=== PATIENT | female | born 1945 | race Caucasian/White ===

== ENCOUNTER → 2017-04-30 | Outpatient (CLI) | payer MEDICARE ==
[2017-04-30 15:49] LABS: Blood Urea Nitrogen 21 mg/dL (7-17); Non-African American GFR(MDRD) >60 (>60 ml/min/1.73 sqM)
== END | disposition home or self-care (01) ==
LOC: LABWHC1 15:08
PROVIDERS: ATTEND Ophthalmology
DX: H47.20 Unspecified optic atrophy (principal)
CPT/HCPCS: 36415; 82565; 84520

== ENCOUNTER → 2017-04-30 | Outpatient (CLI) | payer MEDICARE ==
--- NOTE | 2017-05-01 07:25 | BD ---
EXAMINATION TYPE: MG DEXA axial skeleton. DATE OF EXAM: 04/30/2017 COMPARISON: Osteopenia. CLINICAL HISTORY: 10/21/2011 Height: 65 Weight: 182.8 FRAX RISK QUESTIONS: Alcohol (3 or more units per day): no Family History (Parent hip fracture): no Glucocorticoids (More than 3mos): no (Ex: prednisone, prednisolone, methylprednisolone, dexamethasone, and hydrocortisone). History of Fracture in Adulthood: yes Secondary Osteoporosis: 1. Type 1 Diabetes: no 2. Hyperthyroidism: no follow up exam. 3. Menopause before 45: no 4. Malnutrition: no 5. Chronic liver disease: no Rheumatoid Arthritis: no Current Tobacco Use: no RISK FACTORS HISTORY OF: Hip Fracture (Right/Left): no Spine Fracture: no History of Wrist Fracture: no Surgery to Spine/Hip(right/left)/Wrist (right/left): no Family History of Osteoporosis: no Active: yes Diet low in dairy products/other sources of calcium: no Postmenopausal woman: age 50 Iosat more than 2 inches in height since high school: yes Frequent falls: no Poor Health: no Hyperparathyroidism: no Adrenal Insufficiency: no MEDICATIONS: prilosec, zocor, vasotec, ecotrin, calcium, vit d3, multi vit, xalantran, combigan, ref resh pm Additional History: EXAM MEASUREMENTS: Bone mineral densitometry was performed using the [employer] System. Bone mineral density as measured about the Lumbar spine is: ----- L1-L4(G/cm2): 1.054 T Score Values are as follows: ----- L2: -1.4 ----- L3: -0.7 ----- L4: -0.7 ----- L1-L4: -1.0 Bone mineral density has: increased 7.6 % since study of: 10.21.2011 Bone mineral density about the R hip (g/cm2): 0.771 Bone mineral density about the L hip (g/cm2): 0.841 T Score values are as follows: -----R Neck: -1.9 -----L Neck: -1.4 -----R Total: -1.0 -----L Total: -0.7 Bone mineral density has: decreased -3.7 % since study of: 10.21.2011 IMPRESSION: Osteopenia (T Score between -2.5 and -1 as noted by T score values). Both hips. There is slightly increased risk of fracture and the patient may be considered for treatment. Re-Screen 2-5 years. NOTE: T-SCORE=SD OF THE YOUNG ADULT MEAN.
--- NOTE | 2017-05-05 10:54 | MM ---
Reason for exam: screening (asymptomatic). Last mammogram was performed 2 years and 2 months ago. History: Patient is postmenopausal and had first child at age 30. Physical Findings: A clinical breast exam by your physician is recommended on an annual basis and results should be correlated with mammographic findings. MG 3D Screening Mammo W/Cad Bilateral CC and MLO view(s) were taken. Prior study comparison: March 06, 2015, bilateral MG screening mammo w CAD. April 05, 2013, bilateral digital screening mammo w/CAD. The breast tissue is heterogeneously dense. This may lower the sensitivity of mammography. Architectural distortion in seen within the lateral right breast at middle depth for which additional views will be performed. ASSESSMENT: Incomplete: need additional imaging evaluation, BI-RAD 0 RECOMMENDATION: Special view mammogram of the right breast. If lesion persists on supplemental views, image directed ultrasound is recommended. [facility] will attempt to contact patient to return for supplemental views and ultrasound if indicated. FRIEDA
== END | disposition home or self-care (01) ==
LOC: RADMAMWWP 13:56
PROVIDERS: ATTEND Family Medicine
DX: Z12.31 Encounter for screening mammogram for malignant neoplasm of breast (principal); M85.88 Other specified disorders of bone density and structure, other site
CPT/HCPCS: 77080; 77063; G0202

== ENCOUNTER → 2017-05-13 | Outpatient (CLI) | payer MEDICARE ==
--- NOTE | 2017-05-13 14:30 | MM ---
Reason for exam: additional evaluation requested from abnormal screening. Last mammogram was performed less than 1 month ago. History: Patient is postmenopausal and had first child at age 30. Physical Findings: Nurse did not find any significant physical abnormalities on exam. MG 3D Work Up W/Cad RT CC, MLO, ML, spot compression MLO, and spot compression CC view(s) were taken of the right breast. Prior study comparison: April 30, 2017, bilateral MG 3d screening mammo w/cad. March 06, 2015, bilateral MG screening mammo w CAD. The breast tissue is heterogeneously dense. This may lower the sensitivity of mammography. Probable summation density inner outer right breast. A 6 month follow up recommended. These results were verbally communicated with the patient and result sheet given to the patient on 05/13/17. ASSESSMENT: Probably benign, BI-RAD 3 RECOMMENDATION: Follow-up diagnostic mammogram of the right breast in 6 months.
== END ==
LOC: RADMAMWWP 13:33
PROVIDERS: ATTEND Family Medicine
DX: R92.8 Other abnormal and inconclusive findings on diagnostic imaging of breast (principal)
CPT/HCPCS: G0206; G0279

== ENCOUNTER → 2017-05-20 | Outpatient (CLI) | payer MEDICARE ==
--- NOTE | 2017-05-22 07:48 | MR ---
EXAMINATION TYPE: MR brain/orbits wo/w con DATE OF EXAM: 05/20/2017 COMPARISON: NONE HISTORY: optic atrophy CONTRAST: Performed utilizing 20 mL intravenous MultiHance gadolinium contrast. TECHNIQUE: Multiplanar, multiecho imaging on a 3.0 Carito magnet is performed through the brain. Stud y is performed within 24 hours of arrival to the hospital. The craniovertebral junction is normal. There is a large mass expanding the sella extending into the suprasellar region. The internal carotid artery on the right has contact but no encasement. There may be approximately 50% encasement of the left internal carotid artery at the carotid siphon on the left. Upward expansion has compression on t he optic chiasm which is slightly elevated and flattened. This mass structure has enhancement and is slightly heterogenous. This measures 2.5 AP by 2.5 transverse by 2.9 cm in craniocaudal dimension. 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 Diffusion-weighted imaging is performed. No abnormal hyperintensity is present to suggest an acute i ntracranial infarct or acute ischemic change. The suprasellar mass has diffusion weighted signal tamara lar to that of the brain. There are scattered periventricular white matter changes which are nonspecific. Findings could be rel ated to microvascular ischemic change. Ventricles and sulci are appropriate for the patient age. Dedicated imaging is performed through the orbits. The globes are symmetrical. Optic nerves appear no rmal to the posterior orbital foramen. Optic chiasm is displaced by the suprasellar mass. Optic radia tions appear unremarkable. Intraconal and extraconal fat is normal. Extraocular muscles are normal. L acrimal gland regions are normal. No additional areas of abnormal enhancement. There is enhancement of the suprasellar mass. Vascular f low voids enhancement appear normal. IMPRESSIONS: 1. 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
== END | disposition home or self-care (01) ==
LOC: RADMRIMAIN 13:10
PROVIDERS: ATTEND Ophthalmology
DX: E23.6 Other disorders of pituitary gland (principal); H47.20 Unspecified optic atrophy
CPT/HCPCS: 70543; 70553; A9577

== ENCOUNTER → 2017-11-14 | Outpatient (CLI) | payer MEDICARE ==
--- NOTE | 2017-11-14 11:49 | MM ---
Reason for exam: follow-up at short interval from prior study. Last mammogram was performed 6 months ago. History: Patient is postmenopausal and had first child at age 30. Physical Findings: Nurse did not find any significant physical abnormalities on exam. MG 3D Diag Mammo W/Cad RT CC and MLO view(s) were taken of the right breast. Prior study comparison: May 13, 2017, right breast MG 3d work up w/cad RT. April 30, 2017, bilateral MG 3d screening mammo w/cad. The breast tissue is heterogeneously dense. This may lower the sensitivity of mammography. The lower outer focal asymmetry does not persist. A central density posteriorly on the MLO view also does not persist on lateral 3D images. These results were verbally communicated with the patient and result sheet given to the patient on 11/14/17. ASSESSMENT: Negative, BI-RAD 1 RECOMMENDATION: Return to routine screening mammogram schedule for both breasts. Back on schedule.
== END | disposition home or self-care (01) ==
LOC: RADMAMWWP 10:57
PROVIDERS: ATTEND Family Medicine
DX: R92.8 Other abnormal and inconclusive findings on diagnostic imaging of breast (principal)
CPT/HCPCS: 77065; G0279

== ENCOUNTER 2017-12-10 11:49 | Emergency (ER) | payer MEDICARE ==
[2017-12-10] MEDS ORDERED: SODIUM CHLORIDE 0.9% 1,000 ML IV STA (12:05)
--- NOTE | 2017-12-10 12:42 | ED ---
General Adult HPI - General Chief complaint: Dizziness Stated complaint: Dizziness Time Seen by Provider: 12/10/17 12:05 Source: patient, RN notes reviewed, old records reviewed Mode of arrival: EMS Limitations: no limitations - History of Present Illness Initial comments: This is a 72-year-old female to the ER for evaluation regards to syncopal event. Patient has no prior history of syncope. Patient states he felt a little dizzy earlier today wanted to her kitchen trying to brace herself neck seen AT the ground. Patient denied any prior chest pain or shortness of breath , no current chest pain or shortness of breath no injury from fall no headache no abdominal pain. No recent nausea vomiting or diarrhea, no change in medications. Patient feels much better currently - Related Data Home Medications Medication Instructions Recorded Confirmed Acetaminophen Tab [Tylenol Tab] 500 - 1,000 mg PO Q6H PRN 12/10/17 12/10/17 Aspirin EC [Ecotrin] 325 mg PO HS 12/10/17 12/10/17 Brimonidine Tartrate/Timolol 1 drop BOTH EYES BID 12/10/17 12/10/17 [Combigan 0.2%-0.5% Eye Drops] Calcium 600-Vit D3 800 1 tab PO DAILY 12/10/17 12/10/17 Carboxymethylcellulose Sodium 1 drop BOTH EYES HS 12/10/17 12/10/17 [Refresh Tears] Cholecalciferol [Vitamin D3] 5,000 unit PO HS 12/10/17 12/10/17 Enalapril [Vasotec] 20 mg PO DAILY 12/10/17 12/10/17 Ibuprofen [Advil] 200 - 400 mg PO Q8HR PRN 12/10/17 12/10/17 Latanoprost Ophth [Xalatan 0.005%] 1 drops BOTH EYES HS 12/10/17 12/10/17 Multivitamins, Thera [Multivitamin 1 tab PO DAILY 12/10/17 12/10/17 (formulary)] Ocusoft Eye Lid Scrub 1 applic BOTH EYES DAILY 12/10/17 12/10/17 Omeprazole [PriLOSEC] 20 mg PO DAILY PRN 12/10/17 12/10/17 Simvastatin [Zocor] 10 mg PO HS 12/10/17 12/10/17 Allergies Allergy/AdvReac Type Severity Reaction Status Date / Time propoxyphene [From Darvon] AdvReac Rapid Verified 12/10/17 12:44 Heart Rate Review of Systems ROS Statement: Those systems with pertinent positive or pertinent negative responses have been documented in the HPI. ROS Other: All systems not noted in ROS Statement are negative. 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 Absent: scleral icterus, conjunctival injection, periorbital swelling ENT exam: Present: normal exam, mucous membranes moist Neck exam: Present: normal inspection. Absent: tenderness, meningismus, lymphadenopathy Respiratory exam: Present: normal lung sounds bilaterally. Absent: respiratory distress, wheezes, rales, rhonchi, stridor Cardiovascular Exam: Present: regular rate, normal rhythm, normal heart sounds. Absent: systolic murmur, diastolic murmur, rubs, gallop, clicks GI/Abdominal exam: Present: soft, normal bowel sounds. Absent: distended, tenderness, guarding, rebound, rigid Extremities exam: Present: normal inspection, full ROM, normal capillary refill. Absent: tenderness, pedal edema, joint swelling, calf tenderness Back exam: Present: normal inspection Neurological exam: Present: alert, oriented X3, CN II-XII intact Psychiatric exam: Present: normal affect, normal mood Skin exam: Present: warm, dry, intact, normal color. Absent: rash Course Vital Signs 12/10/17 12/10/17 12/10/17 12:03 13:08 14:12 Temperature 97.4 F L Pulse Rate 62 55 L 57 L Respiratory 18 18 16 Rate Blood Pressure 148/72 150/72 172/77 O2 Sat by Pulse 99 100 100 Oximetry - Reevaluation(s) Reevaluation #1: 12/10/17 14:49 Patient is without syncopal episode here in the ER no headache chest pain shortness of breath or abdominal pain. Patient able to cannulate the bathroom without difficulty 12/10/17 14:50 Patient has no complaints EKG Findings - EKG Comments: EKG Findings:: EKG shows sinus bradycardia rate of 59, DC 178, QRS 90, QTc 4 level Medical Decision Making - Medical Decision Making 72 female the ER for evaluation regarding syncopal event. Lightheadedness prior syncope. At this time no complaints no complaints to ER stay no recurrent syncope. Patient's labwork is normal patient can be discharged home - Lab Data Result diagrams: 12/10/17 13:10 12/10/17 13:10 Lab Results 12/10/17 12/10/17 12/10/17 Range/Units 12:20 13:10 13:10 WBC 10.4 (3.8-10.6) k/uL RBC 3.93 (3.80-5.40) m/uL Hgb 11.2 L (11.4-16.0) gm/dL Hct 33.4 L (34.0-46.0) % MCV 85.0 (80.0-100.0) fL MCH 28.4 (25.0-35.0) pg MCHC 33.4 (31.0-37.0) g/dL RDW 13.4 (11.5-15.5) % Plt Count 349 (150-450) k/uL Neutrophils % 76 % Lymphocytes % 13 % Monocytes % 6 % Eosinophils % 2 % Basophils % 1 % Neutrophils # 7.9 H (1.3-7.7) k/uL Lymphocytes # 1.3 (1.0-4.8) k/uL Monocytes # 0.7 (0-1.0) k/uL Eosinophils # 0.3 (0-0.7) k/uL Basophils # 0.1 (0-0.2) k/uL PT (9.0-12.0) sec INR (<1.2) APTT (22.0-30.0) sec Sodium (137-145) mmol/L Potassium (3.5-5.1) mmol/L Chloride (98-107) mmol/L Carbon Dioxide (22-30) mmol/L Anion Gap mmol/L BUN (7-17) mg/dL Creatinine (0.52-1.04) mg/dL Est GFR (CKD-EPI)AfAm (>60 ml/min/1.73 sqM) Est GFR (CKD-EPI)NonAf (>60 ml/min/1.73 sqM) Glucose (74-99) mg/dL Calcium (8.4-10.2) mg/dL Phosphorus (2.5-4.5) mg/dL Magnesium (1.6-2.3) mg/dL Total Bilirubin (0.2-1.3) mg/dL AST (14-36) U/L ALT (9-52) U/L Alkaline Phosphatase (38-126) U/L Total Creatine Kinase 36 (30-135) U/L CK-MB (CK-2) 0.7 (0.0-2.4) ng/mL CK-MB (CK-2) Rel Index 1.9 Troponin I <0.012 (0.000-0.034) ng/mL Total Protein (6.3-8.2) g/dL Albumin (3.5-5.0) g/dL Urine Color Yellow Urine Appearance Cloudy H (Clear) Urine pH 5.5 (5.0-8.0) Ur Specific [place] 1.017 (1.001-1.035) Urine Protein 1+ H (Negative) Urine Glucose (UA) Negative (Negative) Urine Ketones Negative (Negative) Urine Blood Negative (Negative) Urine Nitrite Negative (Negative) Urine Bilirubin Negative (Negative) Urine Urobilinogen <2.0 (<2.0) mg/dL Ur Leukocyte Esterase Large H (Negative) Urine RBC 4 (0-5) /hpf Urine WBC 25 H (0-5) /hpf Ur Squamous Epith Cells 8 H (0-4) /hpf Urine Bacteria Rare H (None) /hpf Hyaline Casts 12 H (0-2) /lpf Urine Mucus Occasional H (None) /hpf 12/10/17 12/10/17 Range/Units 13:10 13:10 WBC (3.8-10.6) k/uL RBC (3.80-5.40) m/uL Hgb (11.4-16.0) gm/dL Hct (34.0-46.0) % MCV (80.0-100.0) fL MCH (25.0-35.0) pg MCHC (31.0-37.0) g/dL RDW (11.5-15.5) % Plt Count (150-450) k/uL Neutrophils % % Lymphocytes % % Monocytes % % Eosinophils % % Basophils % % Neutrophils # (1.3-7.7) k/uL Lymphocytes # (1.0-4.8) k/uL Monocytes # (0-1.0) k/uL Eosinophils # (0-0.7) k/uL Basophils # (0-0.2) k/uL PT 10.5 (9.0-12.0) sec INR 1.1 (<1.2) APTT 21.5 L (22.0-30.0) sec Sodium 143 (137-145) mmol/L Potassium 4.3 (3.5-5.1) mmol/L Chloride 106 (98-107) mmol/L Carbon Dioxide 26 (22-30) mmol/L Anion Gap 11 mmol/L BUN 27 H (7-17) mg/dL Creatinine 0.82 (0.52-1.04) mg/dL Est GFR (CKD-EPI)AfAm 82 (>60 ml/min/1.73 sqM) Est GFR (CKD-EPI)NonAf 71 (>60 ml/min/1.73 sqM) Glucose 106 H (74-99) mg/dL Calcium 10.0 (8.4-10.2) mg/dL Phosphorus 3.0 (2.5-4.5) mg/dL Magnesium 1.5 L (1.6-2.3) mg/dL Total Bilirubin 0.2 (0.2-1.3) mg/dL AST 19 (14-36) U/L ALT 24 (9-52) U/L Alkaline Phosphatase 80 (38-126) U/L Total Creatine Kinase (30-135) U/L CK-MB (CK-2) (0.0-2.4) ng/mL CK-MB (CK-2) Rel Index Troponin I (0.000-0.034) ng/mL Total Protein 6.5 (6.3-8.2) g/dL Albumin 3.5 (3.5-5.0) g/dL Urine Color Urine Appearance (Clear) Urine pH (5.0-8.0) Ur Specific [place] (1.001-1.035) Urine Protein (Negative) Urine Glucose (UA) (Negative) Urine Ketones (Negative) Urine Blood (Negative) Urine Nitrite (Negative) Urine Bilirubin (Negative) Urine Urobilinogen (<2.0) mg/dL Ur Leukocyte Esterase (Negative) Urine RBC (0-5) /hpf Urine WBC (0-5) /hpf Ur Squamous Epith Cells (0-4) /hpf Urine Bacteria (None) /hpf Hyaline Casts (0-2) /lpf Urine Mucus (None) /hpf Disposition Clinical Impression: Syncope Disposition: HOME SELF-CARE Condition: Good Instructions: Syncope (ED) Referrals: Rose Mary Moon MD [Primary Care Provider] - 1-2 days
[2017-12-10 12:52] LABS: Appearance,Urine Cloudy (Clear); Bacteria,Urine Rare /hpf; Bilirubin,Urine Negative (Negative); Blood,Urine Negative (Negative); Color,Urine Yellow; Glucose,Urine (UA) Negative (Negative); Hyaline Casts,Urine 12 /lpf (0-2); Ketones,Urine Negative (Negative); Leukocyte Esterase,Urine Large (Negative); Mucus,Urine Occasional /hpf; Nitrite,Urine Negative (Negative); PH, Urine 5.5 (5.0-8.0); Protein,Urine 1+ (Negative); RBC,Urine 4 /hpf (0-5); Specific Gravity,Urine 1.017 (1.001-1.035); Squamous Epithelial Cell,Urine 8 /hpf (0-4); Urobilinogen,Urine <2.0 mg/dL (<2.0); WBC,Urine 25 /hpf (0-5)
[2017-12-10 13:24] LABS: Basophils # (A) 0.1 k/uL (0-0.2); Basophils % (A) 1 %; Eosinophils # (A) 0.3 k/uL (0-0.7); Eosinophils % (A) 2 %; HCT 33.4 % (34.0-46.0); HGB 11.2 gm/dL (11.4-16.0); Lymphocytes # (A) 1.3 k/uL (1.0-4.8); Lymphocytes % (A) 13 %; MCH 28.4 pg (25.0-35.0); MCHC 33.4 g/dL (31.0-37.0); Monocytes # (A) 0.7 k/uL (0-1.0); Monocytes % (A) 6 %; Neutrophils # (A) 7.9 k/uL (1.3-7.7); Neutrophils % (A) 76 %; Platelet Count 349 k/uL (150-450); RBC 3.93 m/uL (3.80-5.40); RDW 13.4 % (11.5-15.5); WBC 10.4 k/uL (3.8-10.6)
[2017-12-10 13:33] LABS: Albumin 3.5 g/dL (3.5-5.0); INR 1.1 (<1.2); Magnesium 1.5 mg/dL (1.6-2.3); Potassium 4.3 mmol/L (3.5-5.1); Prothrombin Time 10.5 sec (9.0-12.0); Total Bilirubin 0.2 mg/dL (0.2-1.3); Total Protein 6.5 g/dL (6.3-8.2)
[2017-12-10 13:52] LABS: Creatine Kinase 36 U/L (30-135)
[2017-12-10 14:04] LABS: Creatine Kinase MB 0.7 ng/mL (0.0-2.4); Troponin I <0.012 ng/mL (0.000-0.034)
[2017-12-10] MEDS ORDERED: cefTRIAXone IN SWFI 1,000 MG/10 ML SYRINGE IVP STA (14:04)
[2017-12-10 14:10] LABS: Partial Thromboplastin Time 21.5 sec (22.0-30.0)
[2017-12-10 15:06] VITALS: BP 185/84; PULSE 63; RESP 18; TEMP 97.1
== END 2017-12-10 15:06 | disposition home or self-care (01) ==
LOC: EC 11:49
DX: R55 Syncope and collapse (principal); R42 Dizziness and giddiness; E78.5 Hyperlipidemia, unspecified; I10 Essential (primary) hypertension; Z79.82 Long term (current) use of aspirin; Z79.899 Other long term (current) drug therapy; Z88.5 Allergy status to narcotic agent
CPT/HCPCS: 36415; 93005; 80053; 82550; 82553; 83735; 84100; 84484; 85025; 85610; 85730; 81001; 87086; 99284; 96374; 96361 ×2; J0696

== ENCOUNTER 2017-12-16 11:37 | Day surgery (SDC) | payer MEDICARE ==
[2017-12-12 10:24] VITALS: BMI 28.0
[~2017-12-16 11:37] MED LIST: LACTATED RINGERS 1,000 ML IV SCH; LIDOCAINE 1% 20 ML VIAL (10MG/ML) FOR IV START INTRADERMA PRN
[2017-12-16 12:36] VITALS: TEMP 97
[2017-12-16] MEDS ORDERED: LIDOCAINE 1% 20 ML VIAL (10MG/ML) FOR IV START INTRADERMA ONE (13:16)
[2017-12-16] MEDS ORDERED: PROPOFOL 10 MG/ML 20 ML VIAL IV ONE (13:21)
--- NOTE | 2017-12-16 13:53 | P.PCN ---
Date of Procedure: 12/16/17 Procedure(s) Performed: Procedure: Total colonoscopy. Preoperative diagnosis: Positive Cologuard tests. Postoperative diagnosis: Diverticulosis with no evidence of acute diverticulitis , strictures, polyps or cancer. Preparation: HalfLytely prep. Sedation: Was provided by anesthesia. Brief clinical history: The patient is a 72-year-old female who is scheduled for this evaluation because of positive Cologuard test. She has no abdominal complaints or any new symptoms or overt bleeding. She had a colonoscopy more than 12 years ago. Procedure: With the patient on her left lateral decubitus position and after informed consent and adequate sedation, the perianal area was inspected and it did not show any fissures or fistulas. There were no masses felt on digital rectal examination. The Olympus CFQ 160L video colonoscope was then inserted in the rectum in the usual fashion and advanced to the cecum. There were multiple diverticular orifices seen scattered mostly on the left side with occasional orifice around the hepatic flexure but no evidence of acute diverticulitis or strictures. The mucosa appeared healthy. No polyps or tumors were seen. There was no evidence of bleeding or other pathology. I retroflexed the endoscope in the rectum before the endoscope was withdrawn. The patient tolerated the procedure well. Plan: The patient was reassured. I discussed with her son. In the absence of significant abdominal complaints or anemia, I did not recommend upper GI workup at this time and this can be kept as a contingency based on her course. I will be happy to see in the future if needed. She will follow-up with you as planned.
[2017-12-16 14:18] VITALS: BP 121/59; PULSE 56; RESP 18
== END 2017-12-16 14:40 | disposition home or self-care (01) ==
LOC: ORWHC2ENDO 11:37
DX: K57.30 Diverticulosis of large intestine without perforation or abscess without bleeding (principal); R19.5 Other fecal abnormalities; I10 Essential (primary) hypertension; E78.5 Hyperlipidemia, unspecified; K21.9 Gastro-esophageal reflux disease without esophagitis; Z88.5 Allergy status to narcotic agent; Z79.82 Long term (current) use of aspirin; Z79.899 Other long term (current) drug therapy
CPT/HCPCS: 45378; J2704

== ENCOUNTER 2018-10-15 09:48 | Emergency (ER) | payer MEDICARE ==
[2018-10-15 09:56] VITALS: BP 160/90; TEMP 98.2
--- NOTE | 2018-10-15 10:28 | ED ---
Lower Extremity Injury HPI - General Chief Complaint: Extremity Injury, Lower Stated Complaint: lt knee pain Time Seen by Provider: 10/15/18 10:00 Source: patient, RN notes reviewed Mode of arrival: ambulatory Limitations: no limitations - History of Present Illness Initial Comments: 73-year-old female presents emergency Department chief complaint of left knee pain. Patient states she slipped on a ramp yesterday fell down. Patient states that she fell onto her buttocks region and denies any head injury. Patient states that she has no hip pain. Patient states last night the pain worsenedand swelling of her left knee and which has worsened again this morning. Patient states she has no pain at rest pain with range of motion and weightbearing. Patient denies any paresthesias. She's had no prior knee surgeries. - Related Data Home Medications Medication Instructions Recorded Confirmed Acetaminophen Tab [Tylenol Tab] 500 - 1,000 mg PO Q6H PRN 12/10/17 10/15/18 Calcium 600-Vit D3 800 1 tab PO DAILY 12/10/17 10/15/18 Carboxymethylcellulose Sodium 1 drop BOTH EYES HS 12/10/17 10/15/18 [Refresh Tears] Cholecalciferol [Vitamin D3] 5,000 unit PO HS 12/10/17 10/15/18 Enalapril [Vasotec] 20 mg PO DAILY 12/10/17 10/15/18 Latanoprost Ophth [Xalatan 0.005%] 1 drops BOTH EYES HS 12/10/17 10/15/18 Multivitamins, Thera [Multivitamin 1 tab PO DAILY 12/10/17 10/15/18 (formulary)] Ocusoft Eye Lid Scrub 1 applic BOTH EYES DAILY 12/10/17 10/15/18 Omeprazole [PriLOSEC] 20 mg PO DAILY 12/10/17 10/15/18 Simvastatin [Zocor] 10 mg PO HS 12/10/17 10/15/18 Aspirin [Adult Low Dose Aspirin EC] 81 mg PO HS 12/12/17 10/15/18 Allergies Allergy/AdvReac Type Severity Reaction Status Date / Time propoxyphene [From Darvon] AdvReac Rapid Verified 10/15/18 10:12 Heart Rate Review of Systems ROS Statement: Those systems with pertinent positive or pertinent negative responses have been documented in the HPI. ROS Other: All systems not noted in ROS Statement are negative. 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 POSITIVE COLAGARD RESULT History of Any Multi-Drug Resistant Organisms: None Reported Past Surgical History: Appendectomy, Hysterectomy Additional Past Surgical History / Comment(s): mass removed from optic nerve Jul 2017. COLONOSCOPY Past Anesthesia/Blood Transfusion Reactions: No Reported Reaction Past Psychological History: No Psychological Hx Reported Smoking Status: Never smoker Past Alcohol Use History: None Reported Past Drug Use History: None Reported - Past Family History Mother Family Medical History: Cancer General Exam Limitations: no limitations General appearance: alert, in no apparent distress Head exam: Present: atraumatic, normocephalic, normal inspection Eye exam: Present: normal appearance, PERRL, EOMI. Absent: scleral icterus, conjunctival injection, periorbital swelling Respiratory exam: Present: normal lung sounds bilaterally. Absent: respiratory distress, wheezes, rales, rhonchi, stridor Cardiovascular Exam: Present: regular rate, normal rhythm, normal heart sounds. Absent: systolic murmur, diastolic murmur, rubs, gallop, clicks Extremities exam: Present: other (Left knee there is moderate swelling no ecchymosis no erythema limited range of motion secondary to pain. No laxity noted neurovascular intact) Skin exam: Present: warm, dry, intact, normal color. Absent: rash Course Vital Signs 10/15/18 09:52 Temperature 98.2 F Pulse Rate 100 Respiratory 18 Rate Blood Pressure 160/90 O2 Sat by Pulse 97 Oximetry Medical Decision Making - Medical Decision Making 73-year-old female presents emergency department for fall, left knee pain. X- ray and CT were obtained shows tibial plateau fracture. Patient was able to ambulate prior to come emergency department. Case discussed with orthopedics associate who recommends follow-up in the morning only if patient can ambulate. Patient we placed in knee immobilizer. Disposition Clinical Impression: Tibial plateau fracture, left Disposition: HOME SELF-CARE Condition: Stable Instructions: Leg Fracture (ED) Additional Instructions: Please return to the Emergency Department if symptoms worsen or any other concerns. Is patient prescribed a controlled substance at d/c from ED?: No Referrals: Rose Mary Moon MD [Primary Care Provider] - 1-2 days Lul Bond DO [Medical Doctor] - 1-2 days Time of Disposition: 11:59
--- NOTE | 2018-10-15 10:29 | XR ---
EXAMINATION TYPE: XR knee complete LT DATE OF EXAM: 10/15/2018 CLINICAL HISTORY: Left knee pain after fall yesterday TECHNIQUE: Three views of the left knee are obtained. COMPARISON: None. FINDINGS: There is a curvilinear vertically oriented lucency through the posterior tibial plateau on the lateral view only. Additionally there is a small joint effusion and mild soft tissue swelling ove r the medial compartment. Therefore subtle tibial plateau fracture is suspected and could be confirme d with CT. Moderate atherosclerosis is seen of the femoral artery and its branches. IMPRESSION: Suspected tibial plateau fracture with associated suprapatellar small lipohemarthrosis an d overlying mild soft tissue swelling of the medial compartment. Finding could be confirmed with CT a s this is questioned on the lateral image only.
[2018-10-15 10:45] VITALS: PULSE 100; RESP 18
--- NOTE | 2018-10-15 11:07 | CT ---
EXAMINATION TYPE: CT knee LT wo con DATE OF EXAM: 10/15/2018 COMPARISON: Radiograph same day HISTORY: 73-year-old female Left knee pain post fall. TECHNIQUE: Contiguous axial scanning of the left knee without IV contrast. Coronal and sagittal recon structions performed. CT DLP: 135.6 mGycm Automated exposure control for dose reduction was used. FINDINGS: There is a minimally impacted fracture along the posterior lip of the lateral tibial plateau measurin g 1.8 cm craniocaudal by 1.2 cm AP by 2.3 cm wide. The minimal impaction results in a 1 mm step-off a long the articular surface. Moderate to large joint effusion or hemarthrosis is present. No additional acute fracture. Lateral pa tellar translation with increased TT-TG distance suggesting chronic patellar tracking disorder. IMPRESSION: 1. MINIMALLY IMPACTED FRACTURE ALONG THE POSTERIOR ASPECT OF THE LATERAL TIBIAL PLATEAU. FRACTURE FRA GMENT MEASURES 2.3 X 1.2 X 1.8 CM AND RESULTS IN MINIMAL 1 MM STEP-OFF ALONG THE ARTICULAR SURFACE. 2. SECONDARY MODERATE TO LARGE JOINT EFFUSION/HEMARTHROSIS.
[2018-10-15] MEDS ORDERED: ACET/COD 300 MG/30 MG STARTER PACK 6 TAB BTL PO STA (11:56)
== END 2018-10-15 12:35 | disposition home or self-care (01) ==
LOC: EC 09:48
DX: S82.142A Displaced bicondylar fracture of left tibia, initial encounter for closed fracture (principal); E78.5 Hyperlipidemia, unspecified; I10 Essential (primary) hypertension; Z90.49 Acquired absence of other specified parts of digestive tract; Z90.710 Acquired absence of both cervix and uterus; Z98.890 Other specified postprocedural states; Z79.82 Long term (current) use of aspirin; Z79.899 Other long term (current) drug therapy; Z88.5 Allergy status to narcotic agent; W00.9XXA Unspecified fall due to ice and snow, initial encounter; Y92.009 Unspecified place in unspecified non-institutional (private) residence as the place of occurrence of the external cause
CPT/HCPCS: 99284 ×2; 73562; 73700; L1830

== ENCOUNTER → 2019-02-26 | Outpatient (CLI) | payer MEDICARE ==
--- NOTE | 2019-02-26 15:30 | MR ---
EXAMINATION TYPE: MR brain wo/w con DATE OF EXAM: 02/26/2019 COMPARISON: MRI brain May 20, 2017 HISTORY: Recent blackout, syncope, hx pituitary tumor removed 2016 TECHNIQUE: Multiplanar, multisequence images of the brain and brainstem is performed without and with IV contras t, utilizing 9 mL intravenous Gadavist . FINDINGS: Diffusion weighted images demonstrate no evidence of a recent infarct or other diffusion ab normality. There is no worrisome extra-axial fluid collection. There is mild to moderate ventricular and sulcal prominence redemonstrated. There are scattered foci of T2 hyperintensity seen throughout the white matter bilaterally again seen. Midline structures redemonstrated recurrent sellar mass with suprasellar extension measuring approxim ately 2.7 cm AP diameter by 2.3 cm transversely axial image by 2.0 cm craniocaudally sagittal image 7 3, this lesion has indistinct fat plane from adjacent left internal carotid artery supraclinoid segme nt image 9. Encasement as well present with greater than 180 degree surrounding noted. Distal right i nternal carotid artery shows some irregularity as courses near lesion axial image 11, there is hetero geneous hyperintensity, cannot exclude aneurysm or pseudoaneurysm at this level. Areas of susceptibil ity artifact noted on FLAIR axial image 10 just medial to the right internal carotid artery irregular ity. Optic chiasm is not felt to face. More cranial extension on the left aspect as seen on coronal i mages. Craniocervical junction is maintained. Visualized paranasal sinuses are clear. Globes demonstrate los s of normal spherical shape. 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 Mo re irregularity and prominence of adjacent distal right internal carotid artery, aneurysm or pseudoan eurysm at this level cannot be excluded.
== END | disposition home or self-care (01) ==
LOC: RADMRIMAIN 14:38
PROVIDERS: ATTEND Family Medicine
DX: D35.2 Benign neoplasm of pituitary gland (principal)
CPT/HCPCS: 70553; A9585

== ENCOUNTER → 2019-05-24 | Outpatient (CLI) | payer MEDICARE ==
--- NOTE | 2019-05-25 15:41 | MM ---
Reason for exam: screening (asymptomatic). Last mammogram was performed 1 year and 6 months ago. History: Patient is postmenopausal and had first child at age 30. Physical Findings: A clinical breast exam by your physician is recommended on an annual basis and results should be correlated with mammographic findings. MG 3D Screening Mammo W/Cad Bilateral CC and MLO view(s) were taken. Prior study comparison: November 14, 2017, right breast MG 3d diag mammo w/cad RT. May 13, 2017, right breast MG 3d work up w/cad RT. The breast tissue is heterogeneously dense. This may lower the sensitivity of mammography. There are benign-appearing bilateral breast calcifications. No suspicious abnormality. No significant new finding when compared with prior studies. ASSESSMENT: Benign, BI-RAD 2 RECOMMENDATION: Routine screening mammogram of both breasts in 1 year.
== END | disposition home or self-care (01) ==
LOC: RADMAMWWP 11:06
PROVIDERS: ATTEND Family Medicine
DX: Z12.31 Encounter for screening mammogram for malignant neoplasm of breast (principal)
CPT/HCPCS: 77063; 77067

== ENCOUNTER 2019-12-08 11:11 | Day surgery (SDC) | payer MEDICARE ==
[2019-11-22 15:23] VITALS: BMI 27.6
[~2019-12-08 11:11] MED LIST changes: +LIDOCAINE 1% (10MG/ML) FOR IV START INTRADERMA PRN; -LIDOCAINE 1% 20 ML VIAL (10MG/ML) FOR IV START INTRADERMA PRN; +MOXIFLOXACIN HCL 0.5% DROPS 3 ML BTL OP ONE; +TETRACAINE 0.5% OPHTH (PF) DROPS 4 ML BTL OP ONE; +TIMOLOL 0.5% OPHTH DROPS 5 ML BTL OP ONE
[2019-12-08] MEDS: CYCLOPENTOLATE 1% OPHTH SOLN 2 ML BTL OP ONE ×3 (11:36→11:48)
[2019-12-08 11:39] VITALS: TEMP 97
[2019-12-08] MEDS: PHENYLEPHRINE 2.5% OPHTH DRP 2ML OP NR ×4 (11:39→11:51)
[2019-12-08] MEDS ORDERED: fentaNYL (PF) 50 MCG/ML 2 ML AMP ONE (12:50)
[2019-12-08] MEDS ORDERED: MIDAZOLAM 2 MG/2 ML VIAL ONE (12:50)
[2019-12-08] MEDS ORDERED: BALANCED SALT IRRIG SOLN COMB2 15 ML IRRIG.SOLN INTRAOCULA ONE (13:12)
[2019-12-08] MEDS ORDERED: TRYPAN BLUE 0.06% SYRINGE 0.5 ML SYRINGE MISCELLANE ONE (13:13)
[2019-12-08] MEDS ORDERED: CHONDROITIN-SOD HYALURONATE 1 EACH SYRINGE (0.75 ML) INTRAOCULA ONE (13:13)
[2019-12-08] MEDS ORDERED: LIDOCAINE 1% (PF) 10MG/ML VIAL MISCELLANE ONE (13:13)
[2019-12-08] MEDS ORDERED: EPINEPHrine (PF) 0.3 ML in BALANCED SALT IRRIG SOLN COMB2 500 ML IRRIGATION ONE (13:14)
--- NOTE | 2019-12-08 13:33 | P.OP ---
Date of Procedure: 12/08/19 Preoperative Diagnosis: NS CS & PSC & POAG moderate Postoperative Diagnosis: same Procedure(s) Performed: PIOL & goniotomy OS Implants: MX60 13.00 Anesthesia: MAC Surgeon: Poncho Page Pathology: none sent Condition: stable Disposition: same day Indications for Procedure: blurry vision and improved glaucoma control Operative Findings: no complications
[2019-12-08 14:04] VITALS: BP 170/73; PULSE 52; RESP 18
--- NOTE | 2019-12-09 07:19 | OP ---
OPERATIVE REPORT DATE OF SURGERY: December 08, 2019. PROCEDURE: Phacoemulsification of cataract and intraocular lens implant of the left eye with goniotomy of the left eye. PREOPERATIVE DIAGNOSES: Nuclear sclerosis, cortical sclerosis, posterior subcapsular cataract and moderate stage primary open-angle glaucoma. POSTOPERATIVE DIAGNOSES: Nuclear sclerosis, cortical sclerosis, posterior subcapsular cataract and moderate stage primary open-angle glaucoma. SURGEON: Dr. Poncho Page. ANESTHESIA: Topical. ESTIMATED BLOOD LOSS: 2 mL. SPECIMEN TAKEN: None. NARRATIVE: After obtaining the appropriate consent, the patient was brought to the operating room. There she was placed under cardiac monitoring, prepped and draped in the usual sterile manner. She was approached from her left temporal side and at the 5 o'clock position an MVR blade was used to create a paracentesis port. Through this opening 1% Xylocaine MPF 50:50 mix with balanced salt solution was injected into the anterior chamber. This was followed by installation of Trypan Blue which was left to dwell for approximately 1 minute. The Trypan Blue was irrigated away with balanced salt solution and the anterior chamber was then stabilized with Viscoat. At the 3 o'clock position, a 2.5 mm keratome was used to create a self-sealing corneal flap incision. Additional Viscoat was used to stabilize the anterior chamber as well as a small amount was placed on the patient's cornea. The patient was then asked to rotate her head approximately 45 degrees to her right and maintain a gaze in the general direction a gonioprism was placed on the patient's eye and the trabecular meshwork was easily identified. A Kahook dual blade goniotomy knife was advanced across the anterior chamber and using an inside-out method of removal of the trabecular meshwork approximately 5 clock hours of trabecular meshwork was removed from the nasal side of the eye. Moderate amount of bleeding was noted and expected from the completion of this procedure. The patient was then rotated back to the normal supine position and a cystotome was used to begin a continuous tear capsulorrhexis which was completed using the Utrata forceps. Hydrodissection and hydrodelineation of the lens was accomplished with balanced salt solution. Phacoemulsification lens utilizing phaco chop was accomplished in 13.75 seconds at 13% power. Additional Xylocaine MPF was instilled into the anterior chamber. This was followed by removal of the remaining cortex from the posterior capsule as well as gently polishing of the posterior capsule in the capsule vacuum mode. Additional Viscoat was used to stabilize the capsular bag and a Bausch and Lomb MX60E 13 diopter posterior chamber intraocular lens was then inserted into the capsular bag without difficulty. The remaining viscoelastic was removed from in and around the intraocular lens as well as the anterior chamber. Additional balanced salt solution was used to bring the intraocular pressure of the eye to approximately 30 mmHg by palpation and the incisions were hydrated slightly to ensure watertight integrity. She then received 2 drops of 0.5% timolol followed by 2 drops of moxifloxacin and a drop of pilocarpine. She was then lightly patched and shielded in the usual manner. There were no complications from the procedure. She tolerated the procedure well and was returned to outpatient recovery in good condition. MMNILAL / OFEN: [id number] /
== END 2019-12-08 14:18 | disposition home or self-care (01) ==
LOC: OR 11:11
PROVIDERS: ATTEND Ophthalmology
DX: H25.13 Age-related nuclear cataract, bilateral (principal); H40.1132 Primary open-angle glaucoma, bilateral, moderate stage; H25.012 Cortical age-related cataract, left eye; H52.223 Regular astigmatism, bilateral; D35.2 Benign neoplasm of pituitary gland; H47.323 Drusen of optic disc, bilateral; H47.393 Other disorders of optic disc, bilateral; H18.59 Other hereditary corneal dystrophies; H01.003 Unspecified blepharitis right eye, unspecified eyelid; H52.4 Presbyopia; Z90.710 Acquired absence of both cervix and uterus; Z98.890 Other specified postprocedural states; I11.9 Hypertensive heart disease without heart failure; M54.9 Dorsalgia, unspecified; Z80.9 Family history of malignant neoplasm, unspecified; Z82.49 Family history of ischemic heart disease and other diseases of the circulatory system; K21.9 Gastro-esophageal reflux disease without esophagitis; Z79.82 Long term (current) use of aspirin; Z79.899 Other long term (current) drug therapy; Z88.5 Allergy status to narcotic agent
CPT/HCPCS: 66984; 65820; V2632; J2250; J0171; J3010; J2001

== ENCOUNTER 2020-03-16 00:26 | Emergency (ER) | payer MEDICARE ==
[2020-03-16 00:37] VITALS: TEMP 98.1
[2020-03-16] MEDS ORDERED: SODIUM CHLORIDE 0.9% 500 ML 500 ML IV STA (00:42)
[2020-03-16 01:09] LABS: Basophils % (A) 0 %; Eosinophils # (A) 0.2 k/uL (0-0.7); Eosinophils % (A) 1 %; HCT 38.8 % (34.0-46.0); HGB 12.7 gm/dL (11.4-16.0); Lymphocytes # (A) 1.8 k/uL (1.0-4.8); Lymphocytes % (A) 10 %; MCH 29.6 pg (25.0-35.0); MCHC 32.7 g/dL (31.0-37.0); MCV 90.5 fL (80.0-100.0); Mean Platelet Volume 7.3; Monocytes # (A) 1.1 k/uL (0-1.0); Monocytes % (A) 6 %; Neutrophils # (A) 14.4 k/uL (1.3-7.7); Neutrophils % (A) 81 %; Platelet Count 345 k/uL (150-450); RBC 4.29 m/uL (3.80-5.40); RDW 13.1 % (11.5-15.5); WBC 17.8 k/uL (3.8-10.6)
[2020-03-16 01:19] LABS: Albumin 4.4 g/dL (3.5-5.0); Calcium 10.5 mg/dL (8.4-10.2); Magnesium 1.5 mg/dL (1.6-2.3); Potassium 4.9 mmol/L (3.5-5.1); Total Bilirubin 0.2 mg/dL (0.2-1.3); Total Protein 7.6 g/dL (6.3-8.2)
--- NOTE | 2020-03-16 01:21 | CT ---
EXAMINATION TYPE: CT brain gilmer mason con DATE OF EXAM: 03/16/2020 COMPARISON: None HISTORY: fall Headache. Neck pain CT DLP: 1354.2 mGycm Automated exposure control for dose reduction was used. There is cerebral cortical atrophy. There is no sign of intracranial hemorrhage. The calvarium is int act. There is no evidence of cerebral edema. There is a mass involving the left side of the sella turcica. This measures 2.5 x 1.5 x 1.7 cm. There is bone thickening of the floor the sella turcica. The optic chiasm is not affected. There is slight flexion deformity of the lower cervical spine with disc space narrowing from C5 to T1 and spur formation. The facet joints are intact. There is no evidence of cervical spine fracture. Th e skull base is intact. Temporal bones show normal aeration. IMPRESSION: Negative CT scan of the cervical spine for traumatic injury. Spondylotic changes. No acute intracranial abnormality. No evidence of traumatic injury. 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
[2020-03-16 01:25] LABS: INR 0.9 (<1.2); Prothrombin Time 9.9 sec (9.0-12.0)
[2020-03-16 01:28] LABS: Partial Thromboplastin Time 20.6 sec (22.0-30.0)
--- NOTE | 2020-03-16 01:30 | XR ---
EXAMINATION TYPE: XR chest 2V DATE OF EXAM: 03/16/2020 COMPARISON: NONE HISTORY: Fall. Chest pain. TECHNIQUE: FINDINGS: Heart is normal. Lungs are clear of consolidation. There are no hilar masses. Thoracic aort a is atheromatous. Bony thorax is intact. There is no thoracic compression fracture. IMPRESSION: No active cardiopulmonary disease. Normal heart.
[2020-03-16] MEDS ORDERED: SODIUM CHLORIDE 0.9% 500 ML 500 ML IV ONE (01:34)
[2020-03-16 01:48] VITALS: RESP 16
[2020-03-16 01:54] VITALS: BP 150/88; PULSE 101
--- NOTE | 2020-03-16 01:55 | ED ---
Fall HPI <Rene Hand Levi - Last Filed: 03/16/20 02:44> - General Source: patient, family Mode of arrival: wheelchair <Kalpana Lion - Last Filed: 03/17/20 06:16> - General Chief Complaint: Fall Stated Complaint: syncope Time Seen by Provider: 03/16/20 00:38 - History of Present Illness Initial Comments: 74yo female presenting today for cc of syncope/diarrhea. Patient states she was feeling good all day but this evening has 3 episodes of diarrhea. patient denies bloody or dark black stools. Patient denies fevers or abdominal pain. Patient states that briefly after the third episode she felt lightheaded falling over striking the left side of her head. patient states her glasses pushsed into her face. Her son who she lives with tried to catch her. Denies chest pain, SOB prior. Denies current complaints stating she feels "normal". Denies additional episodes of diarrhea. Remaining ROS (-). (Kalpana Lion) - Related Data Home Medications Medication Instructions Recorded Confirmed Acetaminophen Tab [Tylenol Tab] 500 - 1,000 mg PO Q6H PRN 12/10/17 12/07/19 Carboxymethylcellulose Sodium 1 drop BOTH EYES BID 12/10/17 12/07/19 [Refresh Tears] Enalapril [Vasotec] 20 mg PO DAILY 12/10/17 12/08/19 Latanoprost Ophth [Xalatan 0.005%] 1 drops BOTH EYES HS 12/10/17 12/08/19 Multivitamins, Thera [Multivitamin 1 tab PO DAILY 12/10/17 12/07/19 (formulary)] Ocusoft Eye Lid Scrub 1 applic BOTH EYES DAILY 12/10/17 12/08/19 Omeprazole [PriLOSEC] 20 mg PO DAILY 12/10/17 12/07/19 Simvastatin [Zocor] 10 mg PO HS 12/10/17 12/08/19 Aspirin [Adult Low Dose Aspirin EC] 81 mg PO HS 12/12/17 12/08/19 Calcium Carbonate/Vitamin D3 1 each PO DAILY 11/22/19 12/07/19 [Calcium 600-Vit D3 200 Tablet] Previous Rx's Medication Instructions Recorded Cephalexin [Keflex] 500 mg PO Q6HR 7 Days #28 cap 03/17/20 Allergies Allergy/AdvReac Type Severity Reaction Status Date / Time propoxyphene [From Darvon] AdvReac Rapid Verified 03/16/20 00:37 Heart Rate Review of Systems ROS Other: All systems not noted in ROS Statement are negative. <Rene Hand - Last Filed: 03/16/20 02:44> ROS Other: All systems not noted in ROS Statement are negative. <Kalpana Lion Sharif - Last Filed: 03/17/20 06:16> ROS Statement: Those systems with pertinent positive or pertinent negative responses have been documented in the HPI. Past Medical History Past Medical History: Eye Disorder, Hyperlipidemia, Hypertension Additional Past Medical History / Comment(s): glaucoma, mass on optic nerve, recent sore throat, cough now resolved History of Any Multi-Drug Resistant Organisms: None Reported Past Surgical History: Appendectomy, Hysterectomy Additional Past Surgical History / Comment(s): mass removed from optic nerve Jul 2017. COLONOSCOPY Past Anesthesia/Blood Transfusion Reactions: Motion Sickness, Postoperative Nausea & Vomiting (PONV) Past Psychological History: No Psychological Hx Reported Smoking Status: Never smoker Past Alcohol Use History: None Reported Past Drug Use History: None Reported - Past Family History Mother Family Medical History: Cancer <Kalpana Lion - Last Filed: 03/17/20 06:16> General Exam Limitations: no limitations <Kalpana Lion - Last Filed: 03/17/20 06:16> - General Exam Comments Initial Comments: General: The patient is awake and alert, in no distress Eye: Pupils are equal, round and reactive to light, extra-ocular movements are intact. No nystagmus. There is normal conjunctiva bilaterally. No signs of icterus. Ears, nose, mouth and throat: There are moist mucous membranes and no oral les ions. Neck: The neck is supple, there is no tenderness or JVD. Cardiovascular: There is a regular rate and rhythm. No murmur, rub or gallop is appreciated. Respiratory: Lungs are clear to auscultation, respirations are non-labored, breath sounds are equal. No wheezes, stridor, rales, or rhonchi. Gastrointestinal: Soft, non-distended, non-tender abdomen without masses or organomegaly noted. There is no rebound or guarding present. Musculoskeletal: Normal ROM, no tenderness. Strength 5/5. Sensation intact. Radial pulses equal bilaterally 2+. Neurological: A&O x 3. CN II-XII intact grossly, There are no obvious motor or sensory deficits. Coordination appears grossly intact. Speech is normal. Skin: Skin is warm and dry and no rashes or lesions are noted. Psychiatric: Cooperative, appropriate mood & affect, normal judgment. (Kalpana Lion) Course Vital Signs 03/16/20 03/16/20 03/16/20 00:30 01:47 01:48 Temperature 98.1 F Pulse Rate 115 H 101 H 93 Respiratory 18 16 16 Rate Blood Pressure 133/8 177/93 153/81 O2 Sat by Pulse 98 Oximetry 03/16/20 01:53 Temperature Pulse Rate 101 H Respiratory 16 Rate Blood Pressure 150/88 O2 Sat by Pulse Oximetry Medical Decision Making - Lab Data Result diagrams: 03/16/20 01:00 03/16/20 01:00 <Rene Hand - Last Filed: 03/16/20 02:44> - Lab Data Result diagrams: 03/16/20 01:00 03/16/20 01:00 <Kalpana Lion - Last Filed: 03/17/20 06:16> - Medical Decision Making 74yo female presenting for syncope after episode of diarrhea. No current complaints. Abdomen soft non-tender, no additional episodes. Patient EKG no acute findings. CXR clear. Patient troponin (-). No leg swelling. Patient CT brain c-spine (-) no focal neurological deficits. Patient has leukocytosis. I did sign patient out pending urinalysis to Dr. Hand. Just prior to sign out patient offered admission and refused. (Kalpana Lion) - Lab Data Lab Results 03/16/20 03/16/20 03/16/20 Range/Units 01:00 01:00 01:00 WBC 17.8 H (3.8-10.6) k/uL RBC 4.29 (3.80-5.40) m/uL Hgb 12.7 (11.4-16.0) gm/dL Hct 38.8 (34.0-46.0) % MCV 90.5 (80.0-100.0) fL MCH 29.6 (25.0-35.0) pg MCHC 32.7 (31.0-37.0) g/dL RDW 13.1 (11.5-15.5) % Plt Count 345 (150-450) k/uL Neutrophils % 81 % Lymphocytes % 10 % Monocytes % 6 % Eosinophils % 1 % Basophils % 0 % Neutrophils # 14.4 H (1.3-7.7) k/uL Lymphocytes # 1.8 (1.0-4.8) k/uL Monocytes # 1.1 H (0-1.0) k/uL Eosinophils # 0.2 (0-0.7) k/uL Basophils # 0.0 (0-0.2) k/uL PT 9.9 (9.0-12.0) sec INR 0.9 (<1.2) APTT 20.6 L (22.0-30.0) sec Sodium 139 (137-145) mmol/L Potassium 4.9 (3.5-5.1) mmol/L Chloride 104 (98-107) mmol/L Carbon Dioxide 26 (22-30) mmol/L Anion Gap 9 mmol/L BUN 26 H (7-17) mg/dL Creatinine 1.09 H (0.52-1.04) mg/dL Est GFR (CKD-EPI)AfAm 57 (>60 ml/min/1.73 sqM) Est GFR (CKD-EPI)NonAf 50 (>60 ml/min/1.73 sqM) Glucose 148 H (74-99) mg/dL Calcium 10.5 H (8.4-10.2) mg/dL Magnesium 1.5 L (1.6-2.3) mg/dL Total Bilirubin 0.2 (0.2-1.3) mg/dL AST 25 (14-36) U/L ALT 19 (4-34) U/L Alkaline Phosphatase 130 H (38-126) U/L Troponin I (0.000-0.034) ng/mL Total Protein 7.6 (6.3-8.2) g/dL Albumin 4.4 (3.5-5.0) g/dL Urine Color Urine Appearance (Clear) Urine pH (5.0-8.0) Ur Specific [place] (1.001-1.035) Urine Protein (Negative) Urine Glucose (UA) (Negative) Urine Ketones (Negative) Urine Blood (Negative) Urine Nitrite (Negative) Urine Bilirubin (Negative) Urine Urobilinogen (<2.0) mg/dL Ur Leukocyte Esterase (Negative) Urine RBC (0-5) /hpf Urine WBC (0-5) /hpf Ur Squamous Epith Cells (0-4) /hpf Hyaline Casts (0-2) /lpf Urine Mucus (None) /hpf 03/16/20 03/16/20 Range/Units 01:00 02:10 WBC (3.8-10.6) k/uL RBC (3.80-5.40) m/uL Hgb (11.4-16.0) gm/dL Hct (34.0-46.0) % MCV (80.0-100.0) fL MCH (25.0-35.0) pg MCHC (31.0-37.0) g/dL RDW (11.5-15.5) % Plt Count (150-450) k/uL Neutrophils % % Lymphocytes % % Monocytes % % Eosinophils % % Basophils % % Neutrophils # (1.3-7.7) k/uL Lymphocytes # (1.0-4.8) k/uL Monocytes # (0-1.0) k/uL Eosinophils # (0-0.7) k/uL Basophils # (0-0.2) k/uL PT (9.0-12.0) sec INR (<1.2) APTT (22.0-30.0) sec Sodium (137-145) mmol/L Potassium (3.5-5.1) mmol/L Chloride (98-107) mmol/L Carbon Dioxide (22-30) mmol/L Anion Gap mmol/L BUN (7-17) mg/dL Creatinine (0.52-1.04) mg/dL Est GFR (CKD-EPI)AfAm (>60 ml/min/1.73 sqM) Est GFR (CKD-EPI)NonAf (>60 ml/min/1.73 sqM) Glucose (74-99) mg/dL Calcium (8.4-10.2) mg/dL Magnesium (1.6-2.3) mg/dL Total Bilirubin (0.2-1.3) mg/dL AST (14-36) U/L ALT (4-34) U/L Alkaline Phosphatase (38-126) U/L Troponin I <0.012 (0.000-0.034) ng/mL Total Protein (6.3-8.2) g/dL Albumin (3.5-5.0) g/dL Urine Color Yellow Urine Appearance Clear (Clear) Urine pH 5.0 (5.0-8.0) Ur Specific [place] 1.023 (1.001-1.035) Urine Protein 1+ H (Negative) Urine Glucose (UA) Negative (Negative) Urine Ketones Negative (Negative) Urine Blood Negative (Negative) Urine Nitrite Negative (Negative) Urine Bilirubin Negative (Negative) Urine Urobilinogen <2.0 (<2.0) mg/dL Ur Leukocyte Esterase Moderate H (Negative) Urine RBC 1 (0-5) /hpf Urine WBC 10 H (0-5) /hpf Ur Squamous Epith Cells 2 (0-4) /hpf Hyaline Casts 33 H (0-2) /lpf Urine Mucus Occasional H (None) /hpf Disposition Is patient prescribed a controlled substance at d/c from ED?: No <Rene Hand - Last Filed: 03/16/20 02:44> <Kalpana Lion - Last Filed: 03/17/20 06:16> Clinical Impression: Syncope, Fall, Weakness, Dehydration Disposition: HOME SELF-CARE Condition: Good Instructions (If sedation given, give patient instructions): Dehydration (ED), Syncope (ED), Weakness (ED) Referrals: Rose Mary Moon MD [Primary Care Provider] - 1-2 days
[2020-03-16 02:27] LABS: Appearance,Urine Clear (Clear); Bilirubin,Urine Negative (Negative); Blood,Urine Negative (Negative); Color,Urine Yellow; Glucose,Urine (UA) Negative (Negative); Hyaline Casts,Urine 33 /lpf (0-2); Ketones,Urine Negative (Negative); Leukocyte Esterase,Urine Moderate (Negative); Mucus,Urine Occasional /hpf; Nitrite,Urine Negative (Negative); Protein,Urine 1+ (Negative); RBC,Urine 1 /hpf (0-5); Specific Gravity,Urine 1.023 (1.001-1.035); Squamous Epithelial Cell,Urine 2 /hpf (0-4); Urobilinogen,Urine <2.0 mg/dL (<2.0); WBC,Urine 10 /hpf (0-5)
== END 2020-03-16 02:55 | disposition home or self-care (01) ==
LOC: EC 00:26
DX: E86.0 Dehydration (principal); R55 Syncope and collapse; R53.1 Weakness; D72.829 Elevated white blood cell count, unspecified; R19.7 Diarrhea, unspecified; E78.5 Hyperlipidemia, unspecified; I10 Essential (primary) hypertension; H40.9 Unspecified glaucoma; Z79.82 Long term (current) use of aspirin; Z79.899 Other long term (current) drug therapy; Z88.8 Allergy status to other drugs, medicaments and biological substances
CPT/HCPCS: 36415; 70450; 71046; 72125; 80053; 81001; 83735; 84484; 85025; 85610; 85730; 93005; 99284

== ENCOUNTER 2020-12-20 06:39 | Day surgery (SDC) | payer MEDICARE ==
[2020-12-18 12:15] VITALS: BMI 28.1
[~2020-12-20 06:39] MED LIST changes: +CYCLOPENTOLATE 1% OPHTH SOLN 2 ML BTL OP PRN; -LIDOCAINE 1% (10MG/ML) FOR IV START INTRADERMA PRN; -MOXIFLOXACIN HCL 0.5% DROPS 3 ML BTL OP ONE; +PHENYLEPHRINE 2.5% OPHTH DRP 2ML OP PRN; -TETRACAINE 0.5% OPHTH (PF) DROPS 4 ML BTL OP ONE; +TETRACAINE 0.5% OPHTH (PF) DROPS 4 ML BTL OP PRN; -TIMOLOL 0.5% OPHTH DROPS 5 ML BTL OP ONE
[2020-12-20 07:32] VITALS: RESP 16; TEMP 97.5
[2020-12-20] MEDS ORDERED: MIDAZOLAM 2 MG/2 ML VIAL ONE (08:05)
[2020-12-20] MEDS ORDERED: fentaNYL (PF) 50 MCG/ML 2 ML AMP ONE (08:05)
[2020-12-20] MEDS ORDERED: EPINEPHrine (PF) 0.3 ML in BALANCED SALT IRRIG SOLN COMB2 500 ML IRRIGATION ONE ×4 (08:09)
[2020-12-20] MEDS ORDERED: BALANCED SALT IRRIG SOLN COMB2 15 ML IRRIG.SOLN IRRIGATION ONE (08:23)
[2020-12-20] MEDS ORDERED: LIDOCAINE 1% (PF) 10MG/ML VIAL MISCELLANE ONE (08:24)
[2020-12-20] MEDS ORDERED: DUOVISC KIT (GREEN BOX) INTRAOCULA ONE (08:24)
[2020-12-20] MEDS ORDERED: TRYPAN BLUE 0.06% SYRINGE 0.5 ML SYRINGE INTRAOCULA ONE ×2 (08:25→08:32)
[2020-12-20] MEDS: TIMOLOL 0.5% OPHTH DROPS 5 ML BTL OP PRN ×3 (08:25→08:39)
[2020-12-20] MEDS: PILOCARPINE 1% OPHTH DROPS 15 ML BTL RIGHT EYE ONE ×3 (08:26→08:39)
[2020-12-20] MEDS: MOXIFLOXACIN HCL 0.5% DROPS 3 ML BTL OP PRN ×3 (08:26→08:39)
[2020-12-20 08:59] VITALS: BP 177/76; PULSE 70
--- NOTE | 2020-12-20 20:56 | OP ---
OPERATIVE REPORT PROCEDURE: Phacoemulsification of cataract and intraocular lens implant of the right eye with goniotomy of the right eye. PREOPERATIVE DIAGNOSES: Nuclear sclerosis, cortical sclerosis, posterior subcapsular cataract along with primary open-angle glaucoma, moderate stage. POSTOPERATIVE DIAGNOSES: Nuclear sclerosis, cortical sclerosis, posterior subcapsular cataract along with primary open-angle glaucoma, moderate stage. SURGEON: Dr. Poncho Page. ANESTHESIA: Topical. ESTIMATED BLOOD LOSS: Less than 5 mL. SPECIMEN TAKEN: None. NARRATIVE: After obtaining the appropriate consent, the patient was brought to the operating room. There she was placed under cardiac monitoring, prepped and draped in the usual sterile manner. She was approached from her right temporal side, and at the 11 o'clock position an MVR blade was used to create a paracentesis port. Through this opening 1% lidocaine MPF 50:50 mix with balanced salt solution was injected into the anterior chamber. This was followed by trypan blue, which was allowed to dwell in the eye for one minute. Then it was irrigated away with balanced salt solution. The anterior chamber was then stabilized with Viscoat. At the 9 o'clock position a 2.5 mm keratome was used to create a self-sealing corneal flap incision. The patient was then asked to rotate her head towards her left approximately 45 degrees and maintain a gaze in that general direction, and a gonio prism was placed on the patient's eye to identify the trabecular meshwork previously stained with the trypan dye. Using a [place] Dual Blade, goniotomy was performed over the nasal 5 clock hours using a Ull and Meet method. The remaining remnant of the trabecular meshwork was then removed from the anterior chamber. The patient was then rotated back to the normal supine position. A cystotome was introduced to begin a continuous tear capsulorrhexis which was then completed using the Utrata forceps. Hydrodissection and hydrodelineation of the lens was accomplished with balanced salt solution. Phacoemulsification of the lens utilizing phaco chop was accomplished at 14.82 seconds at 12% power. Additional lidocaine MPF was instilled into the anterior chamber. This was followed by removal of the remaining cortex under irrigation and aspiration along with careful polishing of the posterior capsule in capsule vacuum mode. Provisc was then used to stabilize the capsular bag, and a Bausch and Lomb MX 60E 13.5-diopter posterior chamber intraocular lens was then inserted into the capsular bag without difficulty. The remaining viscoelastic was then removed from in and around the intraocular lens as well as the anterior chamber. The eye was then brought to normal intraocular pressure through the paracentesis port along with assurance that the wounds remained watertight. The intraocular pressure of the eye was brought to approximately 25 to 30 mmHg at the end of the case. She then received 2 drops of 0.5% timolol followed by 2 drops of moxifloxacin and 2 drops of 2% pilocarpine. She was then lightly patched and shielded in the usual manner. There were no complications from the procedure. She tolerated the procedure well and was returned to Outpatient Recovery in good condition. MMTANIKA / OFEN: [id number] /
== END 2020-12-20 09:18 | disposition home or self-care (01) ==
LOC: OR 06:39
PROVIDERS: ATTEND Ophthalmology
DX: H25.11 Age-related nuclear cataract, right eye (principal); H25.011 Cortical age-related cataract, right eye; H40.1132 Primary open-angle glaucoma, bilateral, moderate stage; H26.492 Other secondary cataract, left eye; H47.323 Drusen of optic disc, bilateral; D35.2 Benign neoplasm of pituitary gland; H47.393 Other disorders of optic disc, bilateral; H01.003 Unspecified blepharitis right eye, unspecified eyelid; H01.006 Unspecified blepharitis left eye, unspecified eyelid; H52.13 Myopia, bilateral; H26.9 Unspecified cataract; H52.223 Regular astigmatism, bilateral; H52.4 Presbyopia; H52.31 Anisometropia; E78.5 Hyperlipidemia, unspecified; K21.9 Gastro-esophageal reflux disease without esophagitis; I11.9 Hypertensive heart disease without heart failure; Z98.42 Cataract extraction status, left eye; Z96.1 Presence of intraocular lens; Z98.890 Other specified postprocedural states; Z90.710 Acquired absence of both cervix and uterus; Z90.89 Acquired absence of other organs; M51.26 Other intervertebral disc displacement, lumbar region; Z87.19 Personal history of other diseases of the digestive system; Z82.49 Family history of ischemic heart disease and other diseases of the circulatory system; Z80.9 Family history of malignant neoplasm, unspecified; Z79.82 Long term (current) use of aspirin; Z79.899 Other long term (current) drug therapy; Z88.5 Allergy status to narcotic agent
CPT/HCPCS: 66984; 65820; C1780; J2250; J0171; J3010; J2001

== ENCOUNTER 2021-05-25 11:51 | Emergency (ER) | payer MEDICARE ==
[2021-05-25] MEDS ORDERED: SODIUM CHLORIDE 0.9% 1,000 ML IV STA ×2 (12:45)
--- NOTE | 2021-05-25 12:50 | ED ---
URI HPI - General Chief Complaint: Upper Respiratory Infection Stated Complaint: elevated BP, senrt from [facility] Time Seen by Provider: 05/25/21 12:31 Source: patient, family, RN notes reviewed Mode of arrival: ambulatory Limitations: no limitations - History of Present Illness Initial Comments: This is a 75-year-old female who presents with complaints of not feeling well for the past couple days at least. It nausea vomiting this morning 3 with some diarrhea. No fever but no chills or sweats he has slight sore throat yesterday but is better today no cough or phlegm production she states on my questioning. Also was reported earlier. No earaches no rhinorrhea no dysuria no hematuria. Patient had some dizziness also. She was seen at [facility] found have a elevated blood pressure 160/100 getting COVID-19 test there that was reported as negative. Is also found be tachycardic at that time. MD Complaint: fever, sore throat - Related Data Home Medications Medication Instructions Recorded Confirmed Acetaminophen Tab [Tylenol Tab] 500 - 1,000 mg PO Q6H PRN 12/10/17 05/25/21 Enalapril [Vasotec] 20 mg PO DAILY 12/10/17 05/25/21 Multivitamins, Thera [Multivitamin 1 tab PO DAILY 12/10/17 05/25/21 (formulary)] Omeprazole [PriLOSEC] 20 mg PO DAILY 12/10/17 05/25/21 Simvastatin [Zocor] 10 mg PO HS 12/10/17 05/25/21 Aspirin [Adult Low Dose Aspirin EC] 81 mg PO HS 12/12/17 05/25/21 Calcium Carbonate/Vitamin D3 1 tab PO DAILY 11/22/19 05/25/21 [Calcium 600-Vit D3 200 Tablet] Magnesium 95mg 1 tab PO HS 05/25/21 05/25/21 Refresh Pm Eye Ointment 1 drop BOTH EYES HS 05/25/21 05/25/21 Previous Rx's Medication Instructions Recorded Azithromycin [Zithromax Z-pack (6 250 mg PO DIRECTED 5 Days #6 tab 05/25/21 tabs)] Allergies Allergy/AdvReac Type Severity Reaction Status Date / Time propoxyphene [From Darvon] AdvReac Rapid Verified 05/25/21 14:58 Heart Rate Review of Systems ROS Statement: Those systems with pertinent positive or pertinent negative responses have been documented in the HPI. ROS Other: All systems not noted in ROS Statement are negative. 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 COLONOSCOPY. LT EYE SX Past Anesthesia/Blood Transfusion Reactions: Motion Sickness, Postoperative Nausea & Vomiting (PONV) Past Psychological History: No Psychological Hx Reported Smoking Status: Never smoker - Past Family History Mother Family Medical History: Cancer General Exam - General Exam Comments Initial Comments: This is a well-developed well-nourished awake alert oriented 3 female Limitations: no limitations General appearance: alert, in no apparent distress Head exam: Present: atraumatic, normocephalic, normal inspection Eye exam: Present: normal appearance, PERRL, EOMI. Absent: scleral icterus, conjunctival injection, periorbital swelling ENT exam: Present: mucous membranes dry Neck exam: Present: normal inspection. Absent: tenderness, meningismus, lymphad enopathy Respiratory exam: Present: normal lung sounds bilaterally. Absent: respiratory distress, wheezes, rales, rhonchi, stridor Cardiovascular Exam: Present: normal rhythm, tachycardia, normal heart sounds. Absent: systolic murmur, diastolic murmur, rubs, gallop, clicks GI/Abdominal exam: Present: soft, normal bowel sounds. Absent: distended, tenderness, guarding, rebound, rigid Extremities exam: Present: normal inspection, full ROM, normal capillary refill. Absent: tenderness, pedal edema, joint swelling, calf tenderness Back exam: Present: normal inspection Neurological exam: Present: alert, oriented X3, CN II-XII intact Psychiatric exam: Present: normal affect, normal mood Skin exam: Present: warm, dry, intact, normal color. Absent: rash Course Vital Signs 05/25/21 05/25/21 12:09 13:57 Temperature 103.0 F H Pulse Rate 120 H Respiratory 19 16 Rate Blood Pressure 165/92 O2 Sat by Pulse 97 Oximetry Medical Decision Making - Medical Decision Making I did reevaluate the patient and she states she feels much improved she has had a cough though nothing is showing on X-ray or UA exam. Her code chest was negative. Is likely she does have some bronchitis/pneumonitis. Patient would like to go home she'll be discharged on appropriate antibiotics she was also instructed to increase oral fluids. She is follow-up with her doctor. Return parameters discussed - Lab Data Result diagrams: 05/25/21 13:32 05/25/21 13:32 Lab Results 05/25/21 05/25/21 05/25/21 Range/Units 12:18 13:32 13:32 WBC 16.4 H (3.8-10.6) k/uL RBC 4.23 (3.80-5.40) m/uL Hgb 12.7 (11.4-16.0) gm/dL Hct 38.1 (34.0-46.0) % MCV 90.2 (80.0-100.0) fL MCH 30.1 (25.0-35.0) pg MCHC 33.4 (31.0-37.0) g/dL RDW 13.9 (11.5-15.5) % Plt Count 339 (150-450) k/uL MPV 7.4 Neutrophils % 90 % Lymphocytes % 3 % Monocytes % 5 % Eosinophils % 0 % Basophils % 1 % Neutrophils # 14.7 H (1.3-7.7) k/uL Lymphocytes # 0.5 L (1.0-4.8) k/uL Monocytes # 0.8 (0-1.0) k/uL Eosinophils # 0.1 (0-0.7) k/uL Basophils # 0.1 (0-0.2) k/uL Sodium (137-145) mmol/L Potassium (3.5-5.1) mmol/L Chloride (98-107) mmol/L Carbon Dioxide (22-30) mmol/L Anion Gap mmol/L BUN (7-17) mg/dL Creatinine (0.52-1.04) mg/dL Est GFR (CKD-EPI)AfAm (>60 ml/min/1.73 sqM) Est GFR (CKD-EPI)NonAf (>60 ml/min/1.73 sqM) Glucose (74-99) mg/dL Calcium (8.4-10.2) mg/dL Magnesium (1.6-2.3) mg/dL Total Bilirubin (0.2-1.3) mg/dL AST (14-36) U/L ALT (4-34) U/L Alkaline Phosphatase (38-126) U/L Creatine Kinase (30-135) U/L Troponin I (0.000-0.034) ng/mL Total Protein (6.3-8.2) g/dL Albumin (3.5-5.0) g/dL Lipase (23-300) U/L Urine Color Yellow Urine Appearance Clear (Clear) Urine pH 7.5 (5.0-8.0) Ur Specific Lyons 1.017 (1.001-1.035) Urine Protein Trace H (Negative) Urine Glucose (UA) Negative (Negative) Urine Ketones 1+ H (Negative) Urine Blood Negative (Negative) Urine Nitrite Negative (Negative) Urine Bilirubin Negative (Negative) Urine Urobilinogen <2.0 (<2.0) mg/dL Ur Leukocyte Esterase Trace H (Negative) Urine RBC 1 (0-5) /hpf Urine WBC 1 (0-5) /hpf Ur Squamous Epith Cells 1 (0-4) /hpf Urine Mucus Rare H (None) /hpf Coronavirus (PCR) Not Detected (Not Detectd) 05/25/21 05/25/21 Range/Units 13:32 13:32 WBC (3.8-10.6) k/uL RBC (3.80-5.40) m/uL Hgb (11.4-16.0) gm/dL Hct (34.0-46.0) % MCV (80.0-100.0) fL MCH (25.0-35.0) pg MCHC (31.0-37.0) g/dL RDW (11.5-15.5) % Plt Count (150-450) k/uL MPV Neutrophils % % Lymphocytes % % Monocytes % % Eosinophils % % Basophils % % Neutrophils # (1.3-7.7) k/uL Lymphocytes # (1.0-4.8) k/uL Monocytes # (0-1.0) k/uL Eosinophils # (0-0.7) k/uL Basophils # (0-0.2) k/uL Sodium 138 (137-145) mmol/L Potassium 4.4 (3.5-5.1) mmol/L Chloride 104 (98-107) mmol/L Carbon Dioxide 23 (22-30) mmol/L Anion Gap 11 mmol/L BUN 16 (7-17) mg/dL Creatinine 0.81 (0.52-1.04) mg/dL Est GFR (CKD-EPI)AfAm 82 (>60 ml/min/1.73 sqM) Est GFR (CKD-EPI)NonAf 71 (>60 ml/min/1.73 sqM) Glucose 117 H (74-99) mg/dL Calcium 10.3 H (8.4-10.2) mg/dL Magnesium 1.6 (1.6-2.3) mg/dL Total Bilirubin 0.4 (0.2-1.3) mg/dL AST 33 (14-36) U/L ALT 19 (4-34) U/L Alkaline Phosphatase 117 (38-126) U/L Creatine Kinase 67 (30-135) U/L Troponin I <0.012 (0.000-0.034) ng/mL Total Protein 7.0 (6.3-8.2) g/dL Albumin 4.2 (3.5-5.0) g/dL Lipase 47 (23-300) U/L Urine Color Urine Appearance (Clear) Urine pH (5.0-8.0) Ur Specific Lyons (1.001-1.035) Urine Protein (Negative) Urine Glucose (UA) (Negative) Urine Ketones (Negative) Urine Blood (Negative) Urine Nitrite (Negative) Urine Bilirubin (Negative) Urine Urobilinogen (<2.0) mg/dL Ur Leukocyte Esterase (Negative) Urine RBC (0-5) /hpf Urine WBC (0-5) /hpf Ur Squamous Epith Cells (0-4) /hpf Urine Mucus (None) /hpf Coronavirus (PCR) (Not Detectd) - EKG Data -: EKG Interpreted by Me EKG shows normal: sinus rhythm EKG Comments: Sinus tachycardia rate 1:15. Interval 174 QRS duration 84 QT since QTC 306/423 left anterior fascicular block evidence of possible inferior infarct of undetermined age EKG submitted from [employer]. - Radiology Data Radiology results: report reviewed (Imaging reviewed no definitive infiltrate.), image reviewed Disposition Clinical Impression: Pneumonitis, Febrile illness, acute, Leukocytosis, Bronchitis Disposition: HOME SELF-CARE Condition: Good Instructions (If sedation given, give patient instructions): Pneumonitis (ED), Fever in Adults (ED) Prescriptions: Azithromycin [Zithromax Z-pack (6 tabs)] 250 mg PO DIRECTED 5 Days #6 tab Is patient prescribed a controlled substance at d/c from ED?: No Referrals: Rose Mary Moon MD [Primary Care Provider] - 1-2 days
[2021-05-25] MEDS ORDERED: ACETAMINOPHEN TAB 325 MG TAB PO STA (13:30)
[2021-05-25 13:45] LABS: Basophils # (A) 0.1 k/uL (0-0.2); Basophils % (A) 1 %; Eosinophils # (A) 0.1 k/uL (0-0.7); Eosinophils % (A) 0 %; HCT 38.1 % (34.0-46.0); HGB 12.7 gm/dL (11.4-16.0); Lymphocytes # (A) 0.5 k/uL (1.0-4.8); Lymphocytes % (A) 3 %; MCH 30.1 pg (25.0-35.0); MCHC 33.4 g/dL (31.0-37.0); MCV 90.2 fL (80.0-100.0); Mean Platelet Volume 7.4; Monocytes # (A) 0.8 k/uL (0-1.0); Monocytes % (A) 5 %; Neutrophils # (A) 14.7 k/uL (1.3-7.7); Neutrophils % (A) 90 %; Platelet Count 339 k/uL (150-450); RBC 4.23 m/uL (3.80-5.40); RDW 13.9 % (11.5-15.5); WBC 16.4 k/uL (3.8-10.6)
[2021-05-25 13:59] LABS: Albumin 4.2 g/dL (3.5-5.0); Calcium 10.3 mg/dL (8.4-10.2); Magnesium 1.6 mg/dL (1.6-2.3); Potassium 4.4 mmol/L (3.5-5.1); Total Bilirubin 0.4 mg/dL (0.2-1.3)
--- NOTE | 2021-05-25 14:10 | XR ---
EXAMINATION TYPE: XR chest 2V DATE OF EXAM: 05/25/2021 COMPARISON: Chest x-ray 03/16/2020 HISTORY: Cough, dizziness and vomiting TECHNIQUE: Frontal and lateral views of the chest are obtained. FINDINGS: There is no focal air space opacity, pleural effusion, or pneumothorax seen. Some minimal patchy probable subsegmental atelectatic change suspected at the left lung base. The cardiac silhouet te size is within normal limits. The patient is rotated. Aorta is atheromatous. The osseous structu res are intact. IMPRESSION: May be some minimal basilar atelectatic change. Follow-up as indicated. Patient is rotat ed.
[2021-05-25 14:39] LABS: Appearance,Urine Clear (Clear); Bilirubin,Urine Negative (Negative); Blood,Urine Negative (Negative); Color,Urine Yellow; Glucose,Urine (UA) Negative (Negative); Ketones,Urine 1+ (Negative); Leukocyte Esterase,Urine Trace (Negative); Mucus,Urine Rare /hpf; Nitrite,Urine Negative (Negative); PH, Urine 7.5 (5.0-8.0); Protein,Urine Trace (Negative); RBC,Urine 1 /hpf (0-5); Specific Gravity,Urine 1.017 (1.001-1.035); Squamous Epithelial Cell,Urine 1 /hpf (0-4); Urobilinogen,Urine <2.0 mg/dL (<2.0); WBC,Urine 1 /hpf (0-5)
[2021-05-25] MEDS ORDERED: cefTRIAXone IN SWFI 1,000 MG/10 ML SYRINGE IVP STA (14:54)
[2021-05-25] MEDS ORDERED: AZITHROMYCIN 500 MG in SODIUM CHLORIDE 0.9% 250 ML IVPB STA (14:54)
[2021-05-25 15:05] VITALS: RESP 18
[2021-05-25 16:14] VITALS: BP 143/81; PULSE 96; TEMP 99.5
== END 2021-05-25 16:17 | disposition home or self-care (01) ==
LOC: EC 11:51
DX: J18.9 Pneumonia, unspecified organism (principal); J40 Bronchitis, not specified as acute or chronic; D72.829 Elevated white blood cell count, unspecified; I10 Essential (primary) hypertension; E78.5 Hyperlipidemia, unspecified; Z79.82 Long term (current) use of aspirin; Z79.899 Other long term (current) drug therapy
CPT/HCPCS: 36415; 93005; 80053; 82550; 83690; 83735; 84484; 85025; 81001; 87635; 71046; 96365; 96375; 96361; 99284; J0456; J0696

== ENCOUNTER → 2022-10-01 | Outpatient (CLI) | payer MEDICARE ==
--- NOTE | 2022-10-01 10:03 | BD ---
EXAMINATION TYPE: Axial Bone Density DATE OF EXAM: 10/01/2022 COMPARISON: 04/30/2017 CLINICAL HISTORY: 77 years year old Female. ICD-10 CODE: Z78.0 Asymptomatic menopause Height: 64 Weight: 187.3 FRAX RISK QUESTIONS: Alcohol (3 or more units per day): NO Family History (Parent hip fracture): NO Glucocorticoids (More than 3mos): NO History of Fracture in Adulthood: FOOT X2 Secondary Osteoporosis: 1. Type 1 Diabetes: NO 2. Hyperthyroidism: NO 3. Menopause before 45: NO 4. Malnutrition: NO 5. Chronic liver disease: NO Rheumatoid Arthritis: NO Current Tobacco Use: NO RISK FACTORS HISTORY OF: Hip Fracture (Right/Left): NO Spine Fracture: NO History of Wrist Fracture: NO Surgery to Spine/Hip(right/left)/Wrist (right/left): NO Family History of Osteoporosis: NO Active: NO Diet low in dairy products/other sources of calcium: NO Postmenopausal woman: YES Take estrogen and/or progesterone medications: NO Lost more than 2 inches in height since high school: YES Frequent falls: NO Poor Health: NO Hyperparathyroidism: NO Adrenal Insufficiency: NO MEDICATIONS: Prednisone or other steroids: NO Thyroid Medications:NO Osteoporosis Medications: NO Additional Medications: PRILOSEC, ZOCOR, VASOTEC, MULTI VIT., MAGNESIUM, EXAM MEASUREMENTS: Bone mineral densitometry was performed using the [employer]. Bone mineral density as measured about the Lumbar spine is: ----- L1-L4(G/cm2): 1.031 T Score Values are as follows: ----- L1: -1.4 ----- L2: -2.0 ----- L3: -1.4 ----- L4: -0.4 ----- L1-L4: -1.2 Bone mineral density has: DECREASED -3.7 % since study of: 04/30/2017 Bone mineral density about the R hip (g/cm2): 0.667 Bone mineral density about the L hip (g/cm2): 0.800 T Score values are as follows: -----R Neck: -2.7 -----L Neck: -1.7 -----R Total: -1.6 -----L Total: -1.208 Bone mineral density has: DECREASED -7.2 % since study of: 04/30/2017 FRAX%s: The graph provided illustrates a 27.9% chance for a major osteoporotic fx and a 9.4% chance f or the hips probability for fx in 10 years time. IMPRESSION: Osteoporosis (T Score less than -2.5). There is increased fracture risk and therapy is usually indicated based on age. Re-Screen 1-2 years. NOTE: T-SCORE=SD OF THE YOUNG ADULT MEAN.
--- NOTE | 2022-10-02 17:19 | MM ---
Reason for Exam: Screening (asymptomatic). Last mammogram was performed 3 year(s) and 5 month(s) ago. Patient History: Menarche at age 9. First Full-Term at age 30. Late child-bearing (after 30). Hysterectomy at age 51. Postmenopausal. Patient has history of breast feeding. Risk Values: Nanette 5 year model risk: 2.6%. NCI Lifetime model risk: 4.3%. Prior Study Comparison: 03/06/2015 Bilateral Screening Mammogram, [facility]. 04/30/2017 Bilateral Screening Mammogram, [facility]. 05/13/2017 Right Diagnostic Mammogram, [facility]. 11/14/2017 Right Diagnostic Mammogram, [facility]. 05/24/2019 Bilateral Screening Mammogram, [facility]. Tissue Density: The breast tissue is heterogeneously dense. This may lower the sensitivity of mammography. Findings: Analyzed By CAD. Pattern appears symmetrical and stable. Benign vascular calcifications present bilaterally. No suspicious groups of microcalcifications, spiculated or lobular masses, architectural distortion or other secondary signs of malignancy are mammographically apparent. Overall Assessment: Benign, BI-RAD 2 Management: Screening Mammogram of both breasts in 1 year. A negative mammogram report should not preclude additional follow up of suspicious palpable abnormalities. Patient should continue monthly self breast exam. A clinical breast exam by your physician is recommended on an annual basis and results should be correlated with mammographic findings. Electronically signed and approved by: Paulie Silva D.O. Radiologis
== END | disposition home or self-care (01) ==
LOC: RADMAMWWP 09:14
PROVIDERS: ATTEND Family Medicine
DX: Z12.31 Encounter for screening mammogram for malignant neoplasm of breast (principal); M81.0 Age-related osteoporosis without current pathological fracture; M85.89 Other specified disorders of bone density and structure, multiple sites; Z78.0 Asymptomatic menopausal state
CPT/HCPCS: 77063; 77067; 77080

== ENCOUNTER → 2022-12-30 | Outpatient (CLI) | payer MEDICARE ==
[~2022-12-30] MED LIST changes: -CYCLOPENTOLATE 1% OPHTH SOLN 2 ML BTL OP PRN; -LACTATED RINGERS 1,000 ML IV SCH; -PHENYLEPHRINE 2.5% OPHTH DRP 2ML OP PRN; +SODIUM CHLORIDE 0.9% 500 ML 500 ML in EMPTY BAG 1 BAG IV PRN; -TETRACAINE 0.5% OPHTH (PF) DROPS 4 ML BTL OP PRN; +ZOLEDRONIC ACID 5 MG in SODIUM CHLORIDE 0.9% 100 ML IV NR
[2022-12-30 10:52] VITALS: BP 146/89; PULSE 102; RESP 16; TEMP 97.9
== END ==
LOC: PROCWHC3 10:31
PROVIDERS: ATTEND Family Medicine
DX: M81.0 Age-related osteoporosis without current pathological fracture (principal); Z88.5 Allergy status to narcotic agent
CPT/HCPCS: 96365; J3489